=== PATIENT | male | born 1955 | race Caucasian/White ===

== ENCOUNTER 2018-02-05 05:31 | Day surgery (SDC) | payer BC, OTHER ==
[~2018-02-05] VITALS: Ht 180.3 cm; Wt 102.5 kg
[~2018-02-05 05:31] MED LIST: ASPIR 8181 MG PO; FISH OIL 1,001000 M2 PO; LIALDA1.2 GM PO; LIPITOR 20 MG T20 M1 PO; MULTIVITAMINS PO; TOPROL XL50 MG PO; VITAMIN D2000 UNIT PO
[2018-02-05 07:14] VITALS: BP 141/83
[2018-02-05 07:34] LABS: HEMATOCRIT 40.7 % (42.0-52.0); HEMOGLOBIN 14.7 gm/dL (14.0-18.0)
[2018-02-05] MEDS ORDERED: NORCO 5-325 TA1 EACH PO (10:29)
[2018-02-05] MEDS ORDERED: ONDANSETRON HCL4 M2 PO (10:29)
[2018-02-05 10:56] VITALS: BP 141/83
== END 2018-02-05 11:53 | disposition home or self-care (01) ==
LOC: OR 05:31 → TBA 05:31 → OR 11:34
PROVIDERS: Surgery
DX: K40.30 Unilateral inguinal hernia, with obstruction, without gangrene, not specified as recurrent (principal); K42.9 Umbilical hernia without obstruction or gangrene; E78.00 Pure hypercholesterolemia, unspecified; K75.9 Inflammatory liver disease, unspecified; Z98.890 Other specified postprocedural states; Z79.82 Long term (current) use of aspirin; Z79.899 Other long term (current) drug therapy; Z79.891 Long term (current) use of opiate analgesic
CPT/HCPCS: 49000; 50010; 50101; 50249; 50386; 52265; 53310; 54022; 54118; 54169; 56525; 56526; 56531; 56641; 57092; 57130; 62110; 62900; 70005